=== PATIENT | male | born 1970 | race Caucasian/White ===

== ENCOUNTER → 2016-04-12 | Outpatient (CLI) | payer OTHER ==
--- NOTE | 2016-04-12 08:01 | CT ---
EXAMINATION TYPE: CT abdomen pelvis w con DATE OF EXAM: 04/12/2016 7:39 AM REFERENCE: NONE HISTORY: R10.31 RLQ abdominal pain HISTORY: RLQ pain REFERENCE: NONE CT DLP: 2215.4 mGy Automated exposure control for dose reduction was used. TECHNIQUE: Helical acquisition through the abdomen and pelvis was obtained following the oral ingesti on of with Oral Contrast and following intravenous administration of 100 mL of Omnipaque 300. The marquise a was reformatted in axial, coronal and sagittal projections. FINDINGS: There is minimal dependent atelectasis within the lungs. There is no pleural or pericardia l fluid. The heart is not enlarged. Within the abdomen, the gallbladder has been removed. The liver is unremarkable. There is mild spleno megaly with the spleen measuring 15.6 cm. Both adrenal glands are normal. Both kidneys demonstrate function and appear morphologically normal. The pancreas is unremarkable. There is no significant retroperitoneal, iliac or inguinal adenopathy. The bladder is unremarkable. There is no significant diverticular change and there is no radiographic evidence of diverticulitis. The appendix is not visualized. There is some questionable thickening of the wall of the descending c olon and proximal sigmoid colon. Small bowel loops also show focal areas of wall thickening. There is no free fluid and no free air identified. There is a small umbilical hernia containing fat only with 1.9 cm mouth. There is minimal facet arthropathy in the L3-4 and L4-5 facets as well as some hypertrophic spondylos is in the lower dorsal spine. There is mild wedging of the T7 and T8 vertebral bodies. IMPRESSION: 1. MILD SPLENOMEGALY. 2. MUCOSAL THICKENING INVOLVING THE LEFT SIDE OF THE COLON WELL FOCAL THICKENING INVOLVING THE SMALL BOWEL. PLEASE CORRELATE FOR ENTERITIS OR COLITIS. 3. SMALL UMBILICAL HERNIA CONTAINING FAT ONLY. 4. DEGENERATIVE CHANGE WITHIN THE DORSAL AND LUMBAR SPINES WELL MILD WEDGING OF THE T7 AND T8 V ERTEBRAL BODIES.
== END ==
LOC: RADCTMAIN 06:51
PROVIDERS: ATTEND Family Medicine
DX: R16.1 Splenomegaly, not elsewhere classified (principal); K63.89 Other specified diseases of intestine; K42.9 Umbilical hernia without obstruction or gangrene
CPT/HCPCS: 74177; Q9967

== ENCOUNTER 2018-08-16 07:11 | Emergency (ER) | payer OTHER ==
[2018-08-16 07:23] VITALS: RESP 18
--- NOTE | 2018-08-16 07:44 | ED ---
General Adult HPI - General Chief complaint: ENT Stated complaint: Sore/Swollen Throat Time Seen by Provider: 08/16/18 07:25 Source: patient, RN notes reviewed Mode of arrival: ambulatory Limitations: no limitations - History of Present Illness Initial comments: 47-year-old male without any significant past medical history presents to the emergency department for a chief complaint of sore throat. Patient states he woke up this morning with a sore throat. States it hurts to swallow. Patient is concerned because his throat does feel a little swollen. Patient denies any difficulty swallowing liquids or solids. He denies any fevers. He denies any cough or congestion. Patient has no other complaints at this time including shortness of breath, chest pain, abdominal pain, nausea or vomiting, headache, or visual changes. - Related Data Previous Rx's Medication Instructions Recorded Clindamycin HCl 300 mg PO TID 10 Days cap 08/16/18 Allergies Allergy/AdvReac Type Severity Reaction Status Date / Time Penicillins Allergy pt's Verified 08/16/18 08:32 family is allergic so pt states that he is Review of Systems ROS Statement: Those systems with pertinent positive or pertinent negative responses have been documented in the HPI. ROS Other: All systems not noted in ROS Statement are negative. Past Medical History Past Surgical History: Cholecystectomy Additional Past Surgical History / Comment(s): cyst Past Psychological History: No Psychological Hx Reported Smoking Status: Former smoker Past Alcohol Use History: Occasional Past Drug Use History: None Reported General Exam Limitations: no limitations General appearance: alert, in no apparent distress Head exam: Present: atraumatic, normocephalic, normal inspection Eye exam: Present: normal appearance, PERRL, EOMI. Absent: scleral icterus, conjunctival injection, periorbital swelling ENT exam: Present: normal exam, mucous membranes moist, TM's normal bilaterally, normal external ear exam. Absent: normal oropharynx (Uvula is midline however does appear somewhat edematous, no evidence for peritonsillar abscess, no tonsillar exudates noted) Neck exam: Present: normal inspection, full ROM, lymphadenopathy (bilat palpable and tender submandibular LNs). Absent: tenderness, meningismus Respiratory exam: Present: normal lung sounds bilaterally. Absent: respiratory distress (Patient sitting on edge of bed, no evidence of respiratory distress.), wheezes, rales, rhonchi, stridor Cardiovascular Exam: Present: regular rate, normal rhythm, normal heart sounds. Absent: systolic murmur, diastolic murmur, rubs, gallop, clicks Neurological exam: Present: alert, oriented X3, CN II-XII intact Psychiatric exam: Present: normal affect, normal mood Course Vital Signs 08/16/18 08/16/18 08/16/18 07:21 07:58 08:15 Temperature 98.3 F Pulse Rate 71 74 77 Respiratory 18 18 18 Rate Blood Pressure 154/112 135/102 147/97 O2 Sat by Pulse 97 97 95 Oximetry Medical Decision Making - Medical Decision Making 47-year-old male with a past medical history of cholecystectomy presents for chief complaint of sore throat. Patient states he woke up with a sore throat. He states he feels a little bit swollen as well. States it feels dry and hurts when he swallows. Vitals are stable. Patient is hypertensive, likely related to anxiety. However patient states he is always hypertensive but is not on any blood pressure medication. States his diastolic is always over 95. On exam patient has a patent oropharynx however uvula does appear somewhat swollen with erythema. No edema or signs of angioedema. No allergic reaction. Uvula is midline, there is no evidence of peritonsillar abscess. Patient does have prominent submandibular lymph nodes noted. No exudates. Strep was negative. X-ray of the soft tissue neck also is normal Patient likely has a uvulitis. Patient ALLERGIC to penicillins, will be treated with clindamycin. Patient also be given IM Decadron for sensation of swelling. Recommended follow-up with primary care for this as well as hypertension. Recommended returning if he has any worsening symptoms. - Lab Data Lab Results 08/16/18 Range/Units 07:45 Group A Strep Rapid Negative (Negative) Disposition Clinical Impression: Uvulitis, Pharyngitis Disposition: HOME SELF-CARE Condition: Good Instructions (If sedation given, give patient instructions): Pharyngitis (ED) Additional Instructions: Please follow up with primary care for high blood pressure as well as sore throat. If you have any worsening symptoms such as worsening swelling or are unable to swallow solids or liquids make sure you return to the ED. Prescriptions: Clindamycin HCl 300 mg PO TID 10 Days cap Is patient prescribed a controlled substance at d/c from ED?: No Referrals: Nirmal Rodriguez MD [Primary Care Provider] - 1-2 days Time of Disposition: 09:02
--- NOTE | 2018-08-16 07:57 | XR ---
EXAMINATION TYPE: XR soft tissue neck , 2 VIEWS DATE OF EXAM ORDERED: 08/16/2018 HISTORY: Pain. COMPARISON: None. FINDINGS: Limited soft tissue views of the neck are unremarkable. The epiglottis is normal in size. Prevertebral soft tissues appear normal. IMPRESSION: NORMAL SOFT TISSUE VIEWS OF THE NECK.
[2018-08-16] MEDS ORDERED: DEXAMETHASONE SOD PHOSPHATE 10 MG/ML 1 ML VIAL IM STA (09:01)
[2018-08-16 09:15] VITALS: BP 139/95; PULSE 71; TEMP 97.8
== END 2018-08-16 09:15 | disposition home or self-care (01) ==
LOC: EC 07:11
DX: K12.2 Cellulitis and abscess of mouth (principal); J02.9 Acute pharyngitis, unspecified; I10 Essential (primary) hypertension; Z88.0 Allergy status to penicillin; Z87.891 Personal history of nicotine dependence
CPT/HCPCS: 87081; 87430; 70360; 99283; 96372; J1100

== ENCOUNTER → 2018-10-07 | Outpatient (CLI) | payer BC ==
--- NOTE | 2018-10-07 08:23 | US ---
EXAMINATION TYPE: US venous doppler duplex LE DATE OF EXAM: 10/07/2018 7:43 AM COMPARISON: NONE CLINICAL HISTORY: Swelling of bilateral legs R22.41, R22.42. Edema bilateral legs SIDE PERFORMED: Bilateral TECHNIQUE: The lower extremity deep venous system is examined utilizing real time linear array sonog isac with graded compression, doppler sonography and color-flow sonography. VESSELS IMAGED: External Iliac Vein (EIV) Common Femoral Vein Deep Femoral Vein Greater Saphenous Vein * Femoral Vein Popliteal Vein Small Saphenous Vein * Proximal Calf Veins (* superficial vessels) Right Leg: No evidence of DVT Left Leg: No evidence of DVT Grayscale, color doppler, spectral doppler imaging performed of the deep veins of the bilateral lower extremities. There is normal flow, compressibility, vascular waveforms. IMPRESSION: NO EVIDENCE FOR ACUTE DVT IN EITHER LOWER EXTREMITY.
[2018-10-07 08:39] LABS: Basophils % (A) 1 %; Eosinophils # (A) 0.1 k/uL (0-0.7); Eosinophils % (A) 1 %; HCT 44.9 % (39.0-53.0); HGB 15.4 gm/dL (13.0-17.5); Lymphocytes # (A) 1.8 k/uL (1.0-4.8); Lymphocytes % (A) 33 %; MCH 30.7 pg (25.0-35.0); MCHC 34.4 g/dL (31.0-37.0); MCV 89.2 fL (80.0-100.0); Mean Platelet Volume 7.9; Monocytes # (A) 0.4 k/uL (0-1.0); Monocytes % (A) 8 %; Neutrophils # (A) 2.9 k/uL (1.3-7.7); Neutrophils % (A) 55 %; Platelet Count 172 k/uL (150-450); RBC 5.03 m/uL (4.30-5.90); RDW 13.8 % (11.5-15.5); WBC 5.3 k/uL (3.8-10.6)
[2018-10-07 08:49] LABS: ALT 50 U/L (21-72); AST 31 U/L (17-59); African American GFR (CKD) >90 (>60 ml/min/1.73 sqM); Albumin 4.2 g/dL (3.5-5.0); Alkaline Phosphatase 79 U/L (38-126); Anion Gap 6 mmol/L; Blood Urea Nitrogen 18 mg/dL (9-20); Calcium 9.4 mg/dL (8.4-10.2); Carbon Dioxide 29 mmol/L (22-30); Chloride 105 mmol/L (98-107); Cholesterol 163 mg/dL (<200); Glucose 106 mg/dL (74-99); HDL Cholesterol 43 mg/dL (40-60); LDL Cholesterol,Calculated 84 mg/dL (0-99); Non-African American GFR(CKD) 78 (>60 ml/min/1.73 sqM); Sodium 140 mmol/L (137-145); Total Bilirubin 0.9 mg/dL (0.2-1.3); Total Protein 6.9 g/dL (6.3-8.2); Triglycerides 179 mg/dL (<150)
[2018-10-07 09:05] LABS: T4, Free (Free Thyroxine) 0.99 ng/dL (0.78-2.19)
--- NOTE | 2018-10-08 09:07 | P.ARTDOP ---
Arterial Doppler LOWER EXTREMITY ARTERIAL DOPPLER: DATE OF SERVICE: 10/07/2018 Reason for study: Bilateral leg edema. Doppler waveforms: Multiphasic bilaterally throughout. Pulse volume recording: []. Pressure gradients: None. Ankle-brachial indices: Greater than 1 bilaterally. Toe pressures: [] on the right, [] on the left Impression: Normal study.
== END | disposition home or self-care (01) ==
LOC: RADUSWWP 07:01
PROVIDERS: ATTEND Family Medicine
DX: R22.43 Localized swelling, mass and lump, lower limb, bilateral (principal)
CPT/HCPCS: 36415; 80053; 80061; 84439; 84443; 85025; 93922; 93970

== ENCOUNTER 2022-10-03 15:36 | Inpatient (IN) | payer BC ==
--- NOTE | 2022-10-03 15:59 | ED ---
Syncope HPI - General Chief Complaint: Syncope Stated Complaint: NVD Time Seen by Provider: 10/03/22 15:58 Source: patient, EMS Mode of arrival: EMS Limitations: no limitations - History of Present Illness Initial Comments: This is a 52-year-old male to the emergency department today he presents today evaluation today. This patient presents today for evaluation regards to a syncopal event. Patient has syncopal event a doctor's office he was not feeling well with nausea vomiting diarrhea abdominal pain. He symptoms are ongoing for a few days now with no improvement. No fevers does feel lightheaded and dizzy and that he could pass out with significant activity or motion. No chest pain no headache no current shortness of breath MD Complaint: loss of consciousness, other (Abdominal pain with nausea vomiting and diarrhea for a few days now) -: days(s) Prodromal Symptoms: lightheaded, nausea/vomiting -: second(s) Witnessed: yes - by bystander Current Symptoms: lightheaded History: previous syncopal episode Context: recent illness Treatments Prior to Arrival: IV fluids - Related Data On Hormonal Control: No Home Medications Medication Instructions Recorded Confirmed Loratadine [Claritin] 10 mg PO DAILY 10/03/22 10/03/22 Omeprazole 40 mg PO DAILY 10/03/22 10/03/22 Allergies Allergy/AdvReac Type Severity Reaction Status Date / Time Penicillins Allergy pt's Verified 10/03/22 18:34 family is allergic so pt states that he is Review of Systems ROS Statement: Those systems with pertinent positive or pertinent negative responses have been documented in the HPI. ROS Other: All systems not noted in ROS Statement are negative. Past Medical History Past Medical History: No Reported History History of Any Multi-Drug Resistant Organisms: None Reported Past Surgical History: Cholecystectomy Additional Past Surgical History / Comment(s): cyst Past Psychological History: No Psychological Hx Reported Smoking Status: Former smoker Past Alcohol Use History: Occasional Past Drug Use History: None Reported General Exam Limitations: no limitations General appearance: alert, in no apparent distress, anxious Head exam: Present: atraumatic, normocephalic, normal inspection Eye exam: Present: normal appearance, PERRL, EOMI. Absent: scleral icterus, conjunctival injection, periorbital swelling ENT exam: Present: normal exam, mucous membranes moist Neck exam: Present: normal inspection. Absent: tenderness, meningismus, lymphadenopathy Respiratory exam: Present: normal lung sounds bilaterally. Absent: respiratory distress, wheezes, rales, rhonchi, stridor Cardiovascular Exam: Present: regular rate, normal rhythm, normal heart sounds. Absent: systolic murmur, diastolic murmur, rubs, gallop, clicks GI/Abdominal exam: Present: soft, normal bowel sounds. Absent: distended, tenderness, guarding, rebound, rigid Extremities exam: Present: normal inspection, full ROM, normal capillary refill. Absent: tenderness, pedal edema, joint swelling, calf tenderness Back exam: Present: normal inspection Neurological exam: Present: alert, oriented X3, CN II-XII intact Psychiatric exam: Present: normal affect, normal mood Skin exam: Present: warm, dry, intact, normal color. Absent: rash Course Vital Signs 10/03/22 10/03/22 10/03/22 15:42 19:46 20:00 Temperature 97.5 F L 98.3 F Pulse Rate 88 79 Pulse Rate [ 80 Pulse Oximetery ] Respiratory 18 16 16 Rate Blood Pressure 117/87 144/100 Blood Pressure 142/91 [Left Arm] O2 Sat by Pulse 96 97 98 Oximetry - Reevaluation(s) Reevaluation #1: 10/03/22 19:20 Medical records reviewed Reevaluation #2: 10/03/22 19:20 Patient feels mildly improved with hydration no recurrent syncopal event here in the ER, abdominal pain persists Reevaluation #3: 10/03/22 19:20 Patient informed results questions answered Reevaluation #4: 10/03/22 19:19 Was pt. sent in by a medical professional or institution (AMY Martinez, INDUCTION COORDINATION POWER ENGINEER, urgent care, hospital, or alf...) When possible be specific @ -no Did you speak to anyone other than the patient for history (EMS, parent, family, police, friend...)? What history was obtained from this source @ -no Did you review nursing and triage notes (agree or disagree)? Why? @ -agree Are old charts reviewed (outside hosp., previous admission, EMS record, old EKG, old radiological studies, urgent care reports/EKG's, alf records)? Report findings @ -yes Differential Diagnosis (chest pain, altered mental status, abdominal pain women, abdominal pain men, vaginal bleeding, weakness, fever, dyspnea, syncope, headache, dizziness, GI bleed, back pain, seizure, CVA, palpatations, mental health, musculoskeletal)? @ -prior EKG interpreted by me (3pts min.). @ -yes X-rays interpreted by me (1pt min.). @ -yes CT interpreted by me (1pt min.). @ -yes U/S interpreted by me (1pt. min.). @ -no What testing was considered but not performed or refused? (CT, X-rays, U/S, labs)? Why? @ -none What meds were considered but not given or refused? Why? @ -none Did you discuss the management of the patient with other professionals (professionals i.e. , PA, INDUCTION COORDINATION POWER ENGINEER, lab, RT, psych nurse, social work lecturer, public health technologist, teacher, co founder and chief strategy officer, business case analyst)? Give summary @ -no Was smoking cessation discussed for >3mins.? @ -no Was critical care preformed (if so, how long)? @ -no Were there social determinants of health that impacted care today? How? (Homelessness, low income, unemployed, alcoholism, drug addiction, transportation, low edu. Level, literacy, decrease access to med. care, penitentiary, rehab)? @ -none Was there de-escalation of care discussed even if they declined (Discuss DNR or withdrawal of care, Hospice)? DNR status @ -no What co-morbidities impacted this encounter? (DM, HTN, Smoking, COPD, CAD, Cancer, CVA, ARF, Chemo, Hep., AIDS, mental health diagnosis, sleep apnea, morbid obesity)? @ -none Was patient admitted / discharged? Hospital course, mention meds given and route, prescriptions, significant lab abnormalities, going to OR and other pertinent info. @ - 52 male to the emergency department for evaluation of syncope. Patient has no recurrent syncopal here in the ER. Patient be admitted for similar with hydration but is found of small bowel obstruction. Patient doesn't elevated d- dimer, will pending for VQ scan, CT angios of chest in the morning. Patient be admitted for nothing by mouth status of small bowel obstruction as well as surgical consultation and symptom management Admitted Undiagnosed new problem with uncertain prognosis? @ -no Drug Therapy requiring intensive monitoring for toxicity (Heparin, Nitro, Insulin, Cardizem)? @ -no Were any procedures done? @ -no Diagnosis/symptom? @ -Syncope, small bowel obstruction, nausea vomiting diarrhea Acute, or Chronic, or Acute on Chronic? @ -Acute Uncomplicated (without systemic symptoms) or Complicated (systemic symptoms)? @ -Complicated Side effects of treatment? @ -no Exacerbation, Progression, or Severe Exacerbation? @ -exacerbation Poses a threat to life or bodily function? How? (Chest pain, [place], [place], pneumonia, PE, COPD, DKA, ARF, appy, cholecystitis, CVA, Diverticulitis, Homicidal, Suicidal, threat to staff... and all critical care pts) @ -yes multiple, salt and mortality Reevaluation #5: 10/03/22 19:19 Differential Abdominal Pain Women: Appendicitis, Cholecystitis, diverticulosis, ischemic bowel, pancreatitis, hepatitis, UTI, gastroenteritis, AAA, incarcerated hernia, bowel obstruction, constipation, inflammatory bowel, hepatitis, peptic ulcer disease, splenic infarction, perforated viscus, vulvitis, ovarian torsion, PID, kidney stone, placenta abruption, this is not meant to be an all-inclusive list WomenDifferential Syncope: Valvular disease, hypertrophic cardiomyopathy, pulmonary embolism, tamponade, tachycardia, bradycardia, OH, hypovolemia, hemorrhage, dissection, anemia, intracranial hemorrhage, seizure, hypoglycemia, carbon monoxide poisoning, this is not meant to be an all-inclusive list. - Consultations Consultation #1: Spoke with Dr. Rodriguez agrees to admit this patient EKG Findings - EKG Comments: EKG Findings:: EKG is sinus a 2 NC 166 QRS 126 QTc 4:15 - EKG Results: EKG: interpreted by ERMD Medical Decision Making - Medical Decision Making 52 male to the emergency department for evaluation of syncope. Patient has no recurrent syncopal here in the ER. Patient be admitted for similar with hydration but is found of small bowel obstruction. Patient doesn't elevated d- dimer, will pending for VQ scan, CT angios of chest in the morning. Patient be admitted for nothing by mouth status of small bowel obstruction as well as surgical consultation and symptom management - Lab Data Result diagrams: 10/04/22 07:15 10/04/22 07:15 Lab Results 10/03/22 10/03/22 10/03/22 Range/Units 16:29 16:29 16:29 WBC 9.2 (3.8-10.6) k/uL RBC 5.29 (4.30-5.90) m/uL Hgb 16.8 (13.0-17.5) gm/dL Hct 45.8 (39.0-53.0) % MCV 86.6 (80.0-100.0) fL MCH 31.7 (25.0-35.0) pg MCHC 36.6 (31.0-37.0) g/dL RDW 13.4 (11.5-15.5) % Plt Count 179 (150-450) k/uL MPV 7.9 Neutrophils % 77 % Lymphocytes % 13 % Monocytes % 7 % Eosinophils % 2 % Basophils % 0 % Neutrophils # 7.0 (1.3-7.7) k/uL Lymphocytes # 1.2 (1.0-4.8) k/uL Monocytes # 0.7 (0-1.0) k/uL Eosinophils # 0.1 (0-0.7) k/uL Basophils # 0.0 (0-0.2) k/uL PT 10.5 (9.0-12.0) sec INR 1.0 (<1.2) APTT 24.8 (22.0-30.0) sec D-Dimer 2.44 H (<0.60) mg/L FEU Sodium 136 L (137-145) mmol/L Potassium 4.0 (3.5-5.1) mmol/L Chloride 103 (98-107) mmol/L Carbon Dioxide 21 L (22-30) mmol/L Anion Gap 12 mmol/L BUN 14 (9-20) mg/dL Creatinine 1.08 (0.66-1.25) mg/dL Est GFR (CKD-EPI)AfAm 89 (>60 ml/min/1.73 sqM) Est GFR (CKD-EPI)NonAf 77 (>60 ml/min/1.73 sqM) Glucose 141 H (74-99) mg/dL Calcium 9.0 (8.4-10.2) mg/dL Phosphorus 4.0 (2.5-4.5) mg/dL Magnesium 1.8 (1.6-2.3) mg/dL Total Bilirubin 1.6 H (0.2-1.3) mg/dL AST 26 (17-59) U/L ALT 31 (4-49) U/L Alkaline Phosphatase 92 (38-126) U/L Troponin I (0.000-0.034) ng/mL NT-Pro-B Natriuret Pep <20 pg/mL Total Protein 7.0 (6.3-8.2) g/dL Albumin 4.1 (3.5-5.0) g/dL TSH 1.850 (0.465-4.680) mIU/L 10/03/22 Range/Units 16:29 WBC (3.8-10.6) k/uL RBC (4.30-5.90) m/uL Hgb (13.0-17.5) gm/dL Hct (39.0-53.0) % MCV (80.0-100.0) fL MCH (25.0-35.0) pg MCHC (31.0-37.0) g/dL RDW (11.5-15.5) % Plt Count (150-450) k/uL MPV Neutrophils % % Lymphocytes % % Monocytes % % Eosinophils % % Basophils % % Neutrophils # (1.3-7.7) k/uL Lymphocytes # (1.0-4.8) k/uL Monocytes # (0-1.0) k/uL Eosinophils # (0-0.7) k/uL Basophils # (0-0.2) k/uL PT (9.0-12.0) sec INR (<1.2) APTT (22.0-30.0) sec D-Dimer (<0.60) mg/L FEU Sodium (137-145) mmol/L Potassium (3.5-5.1) mmol/L Chloride (98-107) mmol/L Carbon Dioxide (22-30) mmol/L Anion Gap mmol/L BUN (9-20) mg/dL Creatinine (0.66-1.25) mg/dL Est GFR (CKD-EPI)AfAm (>60 ml/min/1.73 sqM) Est GFR (CKD-EPI)NonAf (>60 ml/min/1.73 sqM) Glucose (74-99) mg/dL Calcium (8.4-10.2) mg/dL Phosphorus (2.5-4.5) mg/dL Magnesium (1.6-2.3) mg/dL Total Bilirubin (0.2-1.3) mg/dL AST (17-59) U/L ALT (4-49) U/L Alkaline Phosphatase (38-126) U/L Troponin I <0.012 (0.000-0.034) ng/mL NT-Pro-B Natriuret Pep pg/mL Total Protein (6.3-8.2) g/dL Albumin (3.5-5.0) g/dL TSH (0.465-4.680) mIU/L - EKG Data -: EKG Interpreted by Me - Radiology Data Radiology results: pending (CT angiogram chest in the a.m.), report reviewed (CT head and pelvis positive for small bowel obstruction, enteritis), image reviewed Critical Care Time Critical Care Time: Yes Total Critical Care Time: 31 Disposition Clinical Impression: Dehydration, Syncope, Abdominal pain, SBO (small bowel obstruction), Nausea and vomiting Disposition: ADMITTED IP TO THIS [facility] Condition: Serious Is patient prescribed a controlled substance at d/c from ED?: No Time of Disposition: 19:00
[2022-10-03] MEDS ORDERED: SODIUM CHLORIDE 0.9% 500 ML 500 ML IV STA (16:13)
[2022-10-03] MEDS ORDERED: SODIUM CHLORIDE 0.9% 1,000 ML IV STA ×2 (16:13)
[2022-10-03] MEDS ORDERED: ONDANSETRON 4 MG/2 ML VIAL IVP STA (16:13)
[2022-10-03 16:40] LABS: Basophils % (A) 0 %; Eosinophils # (A) 0.1 k/uL (0-0.7); Eosinophils % (A) 2 %; HCT 45.8 % (39.0-53.0); HGB 16.8 gm/dL (13.0-17.5); Lymphocytes # (A) 1.2 k/uL (1.0-4.8); Lymphocytes % (A) 13 %; MCH 31.7 pg (25.0-35.0); MCHC 36.6 g/dL (31.0-37.0); MCV 86.6 fL (80.0-100.0); Mean Platelet Volume 7.9; Monocytes # (A) 0.7 k/uL (0-1.0); Monocytes % (A) 7 %; Neutrophils % (A) 77 %; Platelet Count 179 k/uL (150-450); RBC 5.29 m/uL (4.30-5.90); RDW 13.4 % (11.5-15.5); WBC 9.2 k/uL (3.8-10.6)
[2022-10-03 16:52] LABS: ALT 31 U/L (4-49); AST 26 U/L (17-59); African American GFR (CKD) 89 (>60 ml/min/1.73 sqM); Albumin 4.1 g/dL (3.5-5.0); Alkaline Phosphatase 92 U/L (38-126); Anion Gap 12 mmol/L; Blood Urea Nitrogen 14 mg/dL (9-20); Carbon Dioxide 21 mmol/L (22-30); Chloride 103 mmol/L (98-107); Glucose 141 mg/dL (74-99); Magnesium 1.8 mg/dL (1.6-2.3); Non-African American GFR(CKD) 77 (>60 ml/min/1.73 sqM); Sodium 136 mmol/L (137-145); Total Bilirubin 1.6 mg/dL (0.2-1.3)
[2022-10-03 17:00] LABS: NT-Pro-B-Type Natriuretic Pept <20 pg/mL
[2022-10-03 17:11] LABS: Partial Thromboplastin Time 24.8 sec (22.0-30.0); Prothrombin Time 10.5 sec (9.0-12.0)
--- NOTE | 2022-10-03 18:10 | CT ---
EXAMINATION TYPE: CT abdomen pelvis w con DATE OF EXAM: 10/03/2022 COMPARISON: 04/12/2016 INDICATION: Abdominal pain, N/V DLP: 2215.3 mGycm, Automated exposure control for dose reduction was used. CONTRAST: 100 mL of Isovue 300. Study performed without Oral Contrast TECHNIQUE: Axial images were obtained from above the diaphragm to the pubic rami in the axial plane a t 5 mm thick sections. Reconstructed images are reviewed on the computer in the coronal plane. FINDINGS: Limited CT sections are obtained the lung bases. The lung bases are clear. CT ABDOMEN: Liver: Normal Spleen: Normal Pancreas: Normal Adrenal glands: The adrenal glands are normal. Gallbladder: Surgically absent Kidneys: No masses are evident. No hydronephrosis is present. No cysts are present. No renal stone s are evident. Aorta: Normal Inferior vena cava: Normal. CT PELVIS: There are multiple dilated fluid-filled small bowel loops. Some small bowel loops have somewhat promi nent wall within the mid abdomen. Distal ileum appears decompressed. There is fluid within an otherwi se normal-appearing colon. Zone transition may be within the mid pelvis there are some loops of ileum with fluid of a more normal caliber. Decompressed ileum is present within the right lower quadrant. Example image series 202 image 51. Appendix: Not identified. No dilated tubular structure or inflammatory changes evident. Urinary bladder: Normal. Genitourinary structures: Prostate is prominent Osseous structures: No suspicious lytic or sclerotic lesions. IMPRESSIONS: 1. Dilated fluid-filled small bowel loops with somewhat prominent wall. Correlate for partial small bowel obstruction. Gastroenteritis could be considered. Report was called and case discussed with the emergency room physician by Dr. Abernathy by telephone at the time of interpretation.
[2022-10-03] MEDS ORDERED: ACETAMINOPHEN TAB 325 MG TAB PO PRN (19:17)
[2022-10-03] MEDS ORDERED: MORPHINE SULFATE 4 MG/ML SYRINGE IV PRN (19:17)
[2022-10-03] MEDS ORDERED: NALOXONE 0.4 MG/ML 1 ML VIAL IV PRN (19:17)
[2022-10-03] MEDS ORDERED: ONDANSETRON 4 MG/2 ML VIAL IVP PRN (19:17)
[2022-10-03] MEDS: SODIUM CHLORIDE 0.9% 1,000 ML IV SCH ×2 (19:44→21:50)
--- NOTE | 2022-10-03 22:29 | CT ---
CT CHEST FOR PULMONARY EMBOLISM. EXAMINATION TYPE: CT angio chest DATE OF EXAM: 10/03/2022 INDICATION: Elevated D-dimer CT DLP: 662.4 mGycm, Automated exposure control for dose reduction was used. CONTRAST: Patient injected with 80 ml mL of Isovue 370. COMPARISON: None TECHNIQUE: CT of the chest is performed on a spiral scan at 2 mm thick sections. Study is performed with intravenous contrast timed for evaluation for pulmonary embolism. This will limit additional po rtions of the evaluation. FINDINGS: No persistent filling defects are evident to suggest an acute pulmonary embolism. No mediastinal or hilar adenopathy enlarged by CT criteria is evident. The ascending aorta diameter at the level of the main pulmonary artery is 3.9 cm. The main pulmonary artery diameter at the bifur cation is 3.0 cm. Lung windows are clear. Limited CT section through the upper abdomen are unremarkable. IMPRESSIONS: 1. No acute pulmonary embolism. 2. No acute pulmonary process.
--- NOTE | 2022-10-04 09:30 | XR ---
EXAMINATION TYPE: XR abdomen 2V DATE OF EXAM: 10/04/2022 9:01 AM INDICATION: Patient age:Male; 52 years old; Reason for study: Ileus; [facility]. COMPARISON: 10/04/2022 TECHNIQUE: Two views of the abdomen were obtained. FINDINGS: The bowel gas pattern is nonspecific without dilated loops of small or large bowel. There i s no evidence for organomegaly or pneumoperitoneum. The osseous structures are intact. No abnormal calcifications are present. Fecal material and gas are demonstrated throughout the colon and rectum. IMPRESSION: Nonspecific bowel gas pattern without radiographic evidence for acute process.
--- NOTE | 2022-10-04 10:11 | P.CRDCN ---
History of Present Illness History of present illness: HISTORY OF PRESENT ILLNESS: This is a 52-year-old male with a past medical history significant for former nicotine dependence. Patient does not follow with a ophthalmic aide. We have been asked to see the patient in consultation for syncope. Patient examined at the bedside. patient states that he began to feel unwell on Saturday. He reports on Saturday he began having nausea and vomiting and diarrhea which persisted through the week. He went to his PCP yesterday to be evaluated. He states he was sitting on the exam table when he began to feel lightheaded and was extremely diaphoretic. A few seconds later, he passed out and landed on his left side on the floor. Patient denies any chest pain or pressure. Denies SOB. Denies any dizziness or lightheadedness. * EKG reveals sinus mechanism with no signs of acute ischemia * Chest CTA: negative for PE * Laboratory data: WBC 9.2. Hemoglobin 16.8. Platelet count 179. Sodium 136. Potassium 4.0. B UN 14. Creatinine 1.08. Troponin negative 3. TSH 1.8 x 0. * Current home cardiac medications include none REVIEW OF SYSTEMS: At the time of my exam: CONSTITUTIONAL: Denies fever or chills. HEENT: Denies blurred vision, vision changes, or eye pain. Denies hemoptysis CARDIOVASCULAR: Denies chest pain. Denies orthopnea. Denies PND. Denies palpitations RESPIRATORY: Denies shortness of breath. GASTROINTESTINAL: Denies abdominal pain. Denies nausea or vomiting. HEMATOLOGIC: Denies bleeding disorders. GENITOURINARY: Denies any blood in urine. SKIN: Denies pruitis. Denies rash. PHYSICAL EXAM: VITAL SIGNS: Reviewed. GENERAL: Well-developed in no acute distress. HEENT: Head is normocephalic. Pupils are equal, round. Sclerae anicteric. Mucous membranes of the mouth are moist. Neck supple. No JVD or thyromegaly LUNGS: Respirations even and unlabored. Lungs essentially clear to auscultation bilaterally. HEART: Regular rate and rhythm. S1 and S2 heard. ABDOMEN: Soft. Nondistended. Nontender. EXTREMITIES: Normal range of motion. No clubbing or cyanosis. Peripheral pulses intact. No lower extremity edema NEUROLOGIC: Awake and alert. Oriented x 3. ASSESSMENT: Nausea, vomiting, and diarrhea x 5 days Decreased oral intake x 5 days Syncope, likely secondary to above Abdominal pain, possible partial SBO PLAN: Obtain 2D echo to assess cardiac structure and function Continue telemetry monitoring to assess for arrhythmias Await evaluation by general surgery Continue IVF hydration Further recommendations pending patient course Nurse practitioner note has been reviewed by physician. Signing provider agrees with the documented findings, assessment, and plan of care. Past Medical History Past Medical History: No Reported History History of Any Multi-Drug Resistant Organisms: None Reported Past Surgical History: Cholecystectomy Additional Past Surgical History / Comment(s): cyst, ankle and knee sx, Past Anesthesia/Blood Transfusion Reactions: No Reported Reaction Past Psychological History: No Psychological Hx Reported Smoking Status: Former smoker Past Alcohol Use History: Occasional Past Drug Use History: None Reported Medications and Allergies Home Medications Medication Instructions Recorded Confirmed Type Loratadine [Claritin] 10 mg PO DAILY 10/03/22 10/03/22 History Omeprazole 40 mg PO DAILY 10/03/22 10/03/22 History Allergies Allergy/AdvReac Type Severity Reaction Status Date / Time Penicillins Allergy pt's Verified 10/03/22 18:34 family is allergic so pt states that he is Physical Exam Vitals: Vital Signs Temp Pulse Pulse Resp BP BP Pulse Ox 10/04/22 09:16 95 10/04/22 06:59 98.2 F 82 18 103/69 95 10/04/22 02:00 98.0 F 77 15 116/78 98 10/03/22 20:00 98.3 F 80 16 142/91 98 10/03/22 19:46 79 16 144/100 97 10/03/22 15:42 97.5 F L 88 18 117/87 96 Intake and Output 10/03/22 10/04/22 10/04/22 22:59 06:59 14:59 Other: Voiding Method Toilet # Voids 2 Weight 114.305 kg Results 10/03/22 16:29 10/03/22 16:29 Cardiac Enzymes 10/03/22 10/03/22 10/03/22 Range/Units 16:29 16:29 21:52 AST 26 (17-59) U/L Troponin I <0.012 <0.012 (0.000-0.034) ng/mL 10/04/22 Range/Units 01:26 AST (17-59) U/L Troponin I <0.012 (0.000-0.034) ng/mL Coagulation 10/03/22 Range/Units 16:29 PT 10.5 (9.0-12.0) sec APTT 24.8 (22.0-30.0) sec CBC 10/03/22 Range/Units 16:29 WBC 9.2 (3.8-10.6) k/uL RBC 5.29 (4.30-5.90) m/uL Hgb 16.8 (13.0-17.5) gm/dL Hct 45.8 (39.0-53.0) % Plt Count 179 (150-450) k/uL Comprehensive Metabolic Panel 10/03/22 Range/Units 16:29 Sodium 136 L (137-145) mmol/L Potassium 4.0 (3.5-5.1) mmol/L Chloride 103 (98-107) mmol/L Carbon Dioxide 21 L (22-30) mmol/L BUN 14 (9-20) mg/dL Creatinine 1.08 (0.66-1.25) mg/dL Glucose 141 H (74-99) mg/dL Calcium 9.0 (8.4-10.2) mg/dL AST 26 (17-59) U/L ALT 31 (4-49) U/L Alkaline Phosphatase 92 (38-126) U/L Total Protein 7.0 (6.3-8.2) g/dL Albumin 4.1 (3.5-5.0) g/dL Current Medications Generic Name Dose Route Start Last Admin Trade Name Freq PRN Reason Stop Dose Admin Acetaminophen 650 mg 10/03/22 19:17 Acetaminophen Tab 325 Mg Tab PO Q6HR PRN Mild Pain or Fever > 100.5 Sodium Chloride 1,000 mls @ 130 mls/hr 10/03/22 19:30 10/03/22 21:50 Saline 0.9% IV 130 mls/hr .[id number] ALBERT Administration Morphine Sulfate 4 mg 10/03/22 19:17 Morphine Sulfate 4 Mg/Ml Syringe IV Q4HR PRN Severe Pain (Scale 7 to 10) Naloxone HCl 0.2 mg 10/03/22 19:17 Naloxone 0.4 Mg/Ml 1 Ml Vial IV Q2M PRN Opioid Reversal Ondansetron HCl 4 mg 08/16/23 19:17 Ondansetron 4 Mg/2 Ml Vial IVP Q8HR PRN Nausea And Vomiting Intake and Output 10/03/22 10/04/22 10/04/22 22:59 06:59 14:59 Other: Voiding Method Toilet # Voids 2 Weight 114.305 kg 10/03/22 16:29 10/03/22 16:29
[2022-10-04 11:13] LABS: Basophils # (A) 0.03 X 10*3/uL (0.00-0.10); Basophils % (A) 0.4 %; Eosinophils # (A) 0.15 X 10*3/uL (0.04-0.35); HCT 42.3 % (39.6-50.0); HGB 14.9 d/dL (13.0-17.0); Lymphocytes # (A) 1.32 X 10*3/uL (0.90-5.00); Lymphocytes % (A) 17.2 %; MCH 30.8 pg (27.0-32.0); MCHC 35.2 d/dL (32.0-37.0); MCV 87.6 FL (80.0-97.0); Mean Platelet Volume 10.4 FL (9.5-12.2); Monocytes # (A) 0.83 X 10*3/uL (0.20-1.00); Monocytes % (A) 10.8 %; NRBC Per 100 WBC 0 X 10*3/uL (0.00-0.01); Neutrophils # (A) 5.33 X 10*3/uL (1.80-7.70); Neutrophils % (A) 69.3 %; Platelet Count 172 X 10*3/uL (140-440); RBC 4.83 X 10*6/uL (4.40-5.60); RDW 13.7 % (11.5-14.5); WBC 7.68 X 10*3/uL (4.50-10.00)
[2022-10-04 11:14] LABS: ALT 26 U/L (10-49); AST 20 U/L (14-35); Albumin 3.8 d/dL (3.8-4.9); Alkaline Phosphatase 83 U/L (41-126); Blood Urea Nitrogen 11.3 mg/dL (9.0-27.0); Calcium 8.6 mg/dL (8.7-10.3); Chloride 108 mmol/L (96-109); Glucose 99 mg/dL (70-110); Magnesium 1.9 mg/dL (1.5-2.4); Phosphorus 2.7 mg/dL (2.4-5.1); Sodium 139 mmol/L (135-145); Total Bilirubin 1.2 mg/dL (0.3-1.2); Total Protein 5.8 d/dL (6.2-8.2)
--- NOTE | 2022-10-04 12:10 | CA ---
Transthoracic Echo Report Name: Ti Hylton Age: 52 Gender: M : 1970 Exam Date: 10/04/2022 07:46 Exam Location: [facility] Ht (in): 68 Wt (lb): 252 Ordering Physician: Page Winchester Attending/Referring Phys: [id number], Annabella [employer]rifugal Station Operator Tasneem Arce [facility] Procedure CPT: Indications: LV function, syncope Cardiac Hx: Technical Quality: Fair Contrast 1: Total Dose (mL): Contrast 2: Total Dose (mL): MEASUREMENTS (Male / Female) Normal Values 2D ECHO LV Diastolic Diameter PLAX 5.1 cm 4.2 - 5.9 / 3.9 - 5.3 cm LV Systolic Diameter PLAX 3.3 cm IVS Diastolic Thickness 1.1 cm 0.6 - 1.0 / 0.6 - 0.9 cm LVPW Diastolic Thickness 1.2 cm 0.6 - 1.0 / 0.6 - 0.9 cm LV Relative Wall Thickness 0.5 Ascending Aorta Diameter 3.6 cm M-MODE Aortic Root Diameter MM 3.1 cm LA Systolic Diameter MM 4.1 cm LA Ao Ratio MM 1.3 DOPPLER AV Peak Velocity 94.7 cm/s AV Peak Gradient 3.6 mmHg AV Mean Velocity 74.6 cm/s AV Mean Gradient 2.4 mmHg AV Velocity Time Integral 17.8 cm LVOT Peak Velocity 90.0 cm/s LVOT Peak Gradient 3.2 mmHg LVOT Velocity Time Integral 16.7 cm Mitral E Point Velocity 49.7 cm/s Mitral A Point Velocity 60.5 cm/s Mitral E to A Ratio 0.8 MV Deceleration Time 180.2 ms LV E' Lateral Velocity 9.5 cm/s Mitral E to LV E' Lateral Ratio 5.2 LV E' Septal Velocity 7.9 cm/s Mitral E to LV E' Septal Ratio 6.3 Right Atrial Pressure 8.0 mmHg FINDINGS Left Ventricle Mildly increased left ventricular wall thickness. Left ventricular cavity size normal. Low normal left ventricular systolic function with no obvious regional wall motion abnormalities. Left ventricular ejection fraction is estimated at 50-55%. Prominent left ventricular trabeculations. Right Ventricle Moderate right ventricular dilatation. Unable to estimate the right ventricular systolic pressure. Right Atrium Normal right atrial size. Left Atrium Normal left atrial size. Mitral Valve Structurally normal mitral valve. Trace mitral regurgitation. Aortic Valve Trileaflet aortic valve. No aortic valve stenosis or regurgitation. Tricuspid Valve Structurally normal tricuspid valve. Trace tricuspid regurgitation. Pulmonic Valve Structurally normal pulmonic valve. Mild pulmonic regurgitation. Pericardium No pericardial effusion. Aorta Normal size aortic root and and upper normal proximal ascending aorta. CONCLUSIONS Normal LV systolic function Previewed by: Dr. Lalo Lubin MD (Electronically Signed) Final Date: 04 October 2022 12:10
--- NOTE | 2022-10-04 16:12 | P.GSCN ---
History of Present Illness Consult date: 10/04/22 Reason for Consult: Abdominal pain History of present illness: 52-year-old male came to the hospital yesterday by EMS after a syncopal episode at his doctor's office. On Saturday began experiencing symptoms of diarrhea. On Saturday had diarrhea all day and vomiting at night. On Saturday the patient had persistent nausea vomiting anorexia and diarrhea. He felt weak. He had an syncopal episode while at his physician's office. He did have some mild abdominal discomfort yesterday. He thought it was related to vomiting. No pain today. No vomiting since yesterday morning. No diarrhea since yesterday afternoon. No fevers. He does have one niece Saran was in contact with on the weekend who had flulike symptoms. CAT scan performed and reviewed. Mild small bowel wall thickening and mild proximal small bowel dilation present. No di screte transition point. Patient with history of previous laparoscopic cholecystectomy. No history of similar events in the past. Feels well currently. White blood cell count normal. Review of Systems The patient denies any acute changes in vision or hearing, no dysphagia or odynophagia, no chest pain or shortness of breath, no dysuria or hematuria, no headache, no runny nose, no rectal bleeding or melena, no unexplained weight loss Past Medical History Past Medical History: No Reported History History of Any Multi-Drug Resistant Organisms: None Reported Past Surgical History: Cholecystectomy Additional Past Surgical History / Comment(s): cyst, ankle and knee sx, Past Anesthesia/Blood Transfusion Reactions: No Reported Reaction Past Psychological History: No Psychological Hx Reported Smoking Status: Former smoker Past Alcohol Use History: Occasional Past Drug Use History: None Reported Medications and Allergies Home Medications Medication Instructions Recorded Confirmed Type Loratadine [Claritin] 10 mg PO DAILY 10/03/22 10/03/22 History Omeprazole 40 mg PO DAILY 10/03/22 10/03/22 History Allergies Allergy/AdvReac Type Severity Reaction Status Date / Time Penicillins Allergy pt's Verified 10/03/22 18:34 family is allergic so pt states that he is Surgical - Exam Vital Signs Temp Pulse Resp BP Pulse Ox 97.5 F L 88 18 117/87 96 10/03/22 15:42 10/03/22 15:42 10/03/22 15:42 10/03/22 15:42 10/03/22 15:42 Physical exam: General: Well-developed, well-nourished HEENT: Normocephalic, sclerae nonicteric Abdomen: Nontender, nondistended Extremities: No edema Neuro: Alert and oriented Results - Labs 10/04/22 07:15 10/04/22 07:15 Abnormal Lab Results - Last 24 Hours (Table) 10/03/22 10/03/22 10/04/22 Range/Units 16:29 16:29 07:15 D-Dimer 2.44 H (<0.60) mg/L FEU Sodium 136 L (137-145) mmol/L Carbon Dioxide 21 L (22-30) mmol/L BUN/Creatinine Ratio 11.30 L (12.00-20.00) Ratio Glucose 141 H (74-99) mg/dL Calcium 8.6 L (8.7-10.3) mg/dL Total Bilirubin 1.6 H (0.2-1.3) mg/dL Total Protein 5.8 L (6.2-8.2) d/dL Diabetes panel 10/03/22 10/04/22 Range/Units 16:29 07:15 Sodium 136 L 139 (137-145) mmol/L Potassium 4.0 4.0 (3.5-5.1) mmol/L Chloride 103 108 (98-107) mmol/L Carbon Dioxide 21 L 22.0 (22-30) mmol/L BUN 14 11.3 (9-20) mg/dL Creatinine 1.08 1.0 (0.66-1.25) mg/dL Glucose 141 H 99 (74-99) mg/dL Calcium 9.0 8.6 L (8.4-10.2) mg/dL AST 26 20 (17-59) U/L ALT 31 26 (4-49) U/L Alkaline Phosphatase 92 83 (38-126) U/L Total Protein 7.0 5.8 L (6.3-8.2) g/dL Albumin 4.1 3.8 (3.5-5.0) g/dL Thyroid panel 10/03/22 Range/Units 16:29 TSH 1.850 (0.465-4.680) mIU/L Calcium panel 10/03/22 10/04/22 Range/Units 16:29 07:15 Calcium 9.0 8.6 L (8.4-10.2) mg/dL Phosphorus 4.0 2.7 (2.5-4.5) mg/dL Albumin 4.1 3.8 (3.5-5.0) g/dL Pituitary panel 10/03/22 10/04/22 Range/Units 16:29 07:15 Sodium 136 L 139 (137-145) mmol/L Potassium 4.0 4.0 (3.5-5.1) mmol/L Chloride 103 108 (98-107) mmol/L Carbon Dioxide 21 L 22.0 (22-30) mmol/L BUN 14 11.3 (9-20) mg/dL Creatinine 1.08 1.0 (0.66-1.25) mg/dL Glucose 141 H 99 (74-99) mg/dL Calcium 9.0 8.6 L (8.4-10.2) mg/dL TSH 1.850 (0.465-4.680) mIU/L Adrenal panel 10/03/22 10/04/22 Range/Units 16:29 07:15 Sodium 136 L 139 (137-145) mmol/L Potassium 4.0 4.0 (3.5-5.1) mmol/L Chloride 103 108 (98-107) mmol/L Carbon Dioxide 21 L 22.0 (22-30) mmol/L BUN 14 11.3 (9-20) mg/dL Creatinine 1.08 1.0 (0.66-1.25) mg/dL Glucose 141 H 99 (74-99) mg/dL Calcium 9.0 8.6 L (8.4-10.2) mg/dL Total Bilirubin 1.6 H 1.2 (0.2-1.3) mg/dL AST 26 20 (17-59) U/L ALT 31 26 (4-49) U/L Alkaline Phosphatase 92 83 (38-126) U/L Total Protein 7.0 5.8 L (6.3-8.2) g/dL Albumin 4.1 3.8 (3.5-5.0) g/dL Assessment and Plan (1) Abdominal pain Narrative/Plan: 52-year-old male with abdominal pain and symptoms consistent with ga stroenteritis. Begin clear liquids. May advance if tolerates. Anticipate discharge tomorrow. Monitor for recurrent symptoms. Current Visit: Yes Status: Acute Code(s): R10.9 - UNSPECIFIED ABDOMINAL PAIN SNOMED Code(s): 71485738
--- NOTE | 2022-10-04 17:55 | P.HPIM ---
History of Present Illness H&P Date: 10/04/22 Chief Complaint: Syncopal episode at office yesterday This is a 51 [id number] male well-known to the practice who presented to the office was seen by the nurse practitioner. Who on entry to the exam room underwent a syncopal episode and fell and struck himself on the exam table ambulance was called and patient was transferred to the emergency room via ambulance. Patient's been experiencing multiple episodes of diarrhea and vomiting all day Saturday and Saturday was seen in the office and which he felt weak and experienced full blown syncopal episode. Patient has no pain today no vomiting since yesterday morning no loose stools just today no fevers it appears that he may have had a SBO, CAT scan performed had mild small bowel wall thickening proximal sole ball done granulation dilatation feeling much better white blood count is normal Review of Systems Constitutional: Reports as per HPI Ears, nose, mouth and throat: Reports as per HPI Cardiovascular: Reports as per HPI Respiratory: Reports as per HPI Gastrointestinal: Reports abdominal pain, Reports constipation, Reports diarrhea, Reports nausea, Reports vomiting Genitourinary: Reports as per HPI Musculoskeletal: Reports as per HPI Integumentary: Reports as per HPI Neurological: Reports as per HPI Psychiatric: Reports as per HPI Endocrine: Reports as per HPI Past Medical History Past Medical History: No Reported History, Syncope History of Any Multi-Drug Resistant Organisms: None Reported Past Surgical History: Cholecystectomy Additional Past Surgical History / Comment(s): cyst, ankle and knee sx, Past Anesthesia/Blood Transfusion Reactions: No Reported Reaction Past Psychological History: No Psychological Hx Reported Smoking Status: Former smoker Past Alcohol Use History: Occasional Past Drug Use History: None Reported Medications and Allergies Home Medications Medication Instructions Recorded Confirmed Type Loratadine [Claritin] 10 mg PO DAILY 10/03/22 10/03/22 History Omeprazole 40 mg PO DAILY 10/03/22 10/03/22 History Allergies Allergy/AdvReac Type Severity Reaction Status Date / Time Penicillins Allergy pt's Verified 10/03/22 18:34 family is allergic so pt states that he is Physical Exam Osteopathic Statement: *. No significant issues noted on an osteopathic structural exam other than those noted in the History and Physical/Consult. Vitals: Vital Signs Temp Pulse Pulse Resp BP BP Pulse Ox 10/04/22 13:36 98.1 F 73 18 127/86 97 10/04/22 09:16 95 10/04/22 06:59 98.2 F 82 18 103/69 95 10/04/22 02:00 98.0 F 77 15 116/78 98 10/03/22 20:00 98.3 F 80 16 142/91 98 10/03/22 19:46 79 16 144/100 97 Intake and Output 10/04/22 10/04/22 10/04/22 06:59 14:59 22:59 Other: # Voids 2 General: [Patient awake, alert and oriented times 3. Patient in no acute distress.] HEENT: [PERRL. EOMI. No pharyngeal erythema or exudate.] Neck: [No adenopathy.] Cardiac: [Heart regular in rate and rhythm. No S3. No S4. No clicks, rubs. No murmur.] Lungs: [Clear to auscultation bilaterally.] Abdomen: [No mass. No organomegaly. Bowel sounds presnt and normoactive in all 4 quadrants.] Extremes: [No edema no cyanosis no claudication normal pulses] : Normal male genitalia Musculoskeletal: [No joint erythema, edema or tenderness.] Skin: [No rash.] Neurologic: [No lateralizing deficits. CN II - XII grossly intact.] Lymphatic: [No adenopathy.] Results CBC & Chem 7: 10/04/22 07:15 10/04/22 07:15 Labs: Abnormal Lab Results - Last 24 Hours (Table) 10/04/22 Range/Units 07:15 BUN/Creatinine Ratio 11.30 L (12.00-20.00) Ratio Calcium 8.6 L (8.7-10.3) mg/dL Total Protein 5.8 L (6.2-8.2) d/dL Thrombosis Risk Factor Assmnt - Choose All That Apply Each Factor Represents 1 point: Age 41-60 years Other Risk Factors: No Other congenital or acquired thrombophilia - If yes, enter type in comment: No Thrombosis Risk Factor Assessment Total Risk Factor Score: 1 Thrombosis Risk Factor Assessment Level: Low Risk Assessment and Plan (1) Abdominal pain Current Visit: Yes Status: Acute Code(s): R10.9 - UNSPECIFIED ABDOMINAL PAIN SNOMED Code(s): 30232576 (2) Dehydration Current Visit: Yes Status: Acute Code(s): E86.0 - DEHYDRATION SNOMED Code(s): 46418570 (3) SBO (small bowel obstruction) Current Visit: Yes Status: Acute Code(s): K56.609 - UNSP INTESTNL OBST, UNSP TO PARTIAL VERSUS COMPLETE OBST SNOMED Code(s): 505230096 (4) Syncope Current Visit: Yes Status: Acute Code(s): R55 - SYNCOPE AND COLLAPSE S NOMED Code(s): 164696805 Plan: Probable vasovagal syncope secondary to temporary SBO Symptoms. Be resolving If patient tolerates diet tonight anticipate discharge home tomorrow Time with Patient: Greater than 30
[2022-10-04 21:16] VITALS: RESP 16
[2022-10-04] MEDS: SODIUM CHLORIDE 0.9% 1,000 ML IV SCH (21:29)
[2022-10-05] MEDS: SODIUM CHLORIDE 0.9% 1,000 ML IV SCH (02:22)
[2022-10-05 07:46] VITALS: BP 126/80; PULSE 78; TEMP 98.2
--- NOTE | 2022-10-05 09:55 | P.PN ---
Subjective HISTORY OF PRESENT ILLNESS: This is a 52-year-old male with a past medical history significant for former nicotine dependence. 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 We have been asked to see the patient in consultation for syncope. Patient examined at the bedside. patient states that he began to feel unwell on Saturday. He reports on Saturday he began having nausea and vomiting and diarrhea which persisted through the week. He went to his PCP yesterday to be evaluated. He states he was sitting on the exam table when he began to feel lightheaded and was extremely diaphoretic. A few seconds later, he passed out and landed on his left side on the floor. Patient denies any chest pain or pressure. Denies SOB. Denies any dizziness or lightheadedness. * EKG reveals sinus mechanism with no signs of acute ischemia * Chest CTA: negative for PE * Laboratory data: WBC 9.2. Hemoglobin 16.8. Platelet count 179. Sodium 136. Potassium 4.0. B UN 14. Creatinine 1.08. Troponin negative 3. TSH 1.8 x 0. * Current home cardiac medications include none 10/05/2022 Patient examined this morning at the bedside. Patient denies chest pain or pressure. He denies shortness of breath. Denies dizziness or lightheadedness. Patient was evaluated by general surgery yesterday and his diet was advanced. He is tolerating it well. He denies any nausea or vomiting. Denies any diarrhea. Vital signs are stable. Telemetry reveals sinus mechanism with no acute events noted. Echocardiogram completed revealing preserved LV systolic function with no significant valvular issues. PHYSICAL EXAM: VITAL SIGNS: Reviewed. GENERAL: Well-developed in no acute distress. HEENT: Head is normocephalic. Pupils are equal, round. Sclerae anicteric. Mucous membranes of the mouth are moist. Neck supple. No JVD or thyromegaly LUNGS: Respirations even and unlabored. Lungs essentially clear to auscultation bilaterally. HEART: Regular rate and rhythm. S1 and S2 heard. ABDOMEN: Soft. Nondistended. Nontender. EXTREMITIES: Normal range of motion. No clubbing or cyanosis. Peripheral pulse s intact. No lower extremity edema NEUROLOGIC: Awake and alert. Oriented x 3. ASSESSMENT: Nausea, vomiting, and diarrhea x 5 days Decreased oral intake x 5 days Syncope, likely secondary to above Abdominal pain, possible partial SBO PLAN: No further inpatient recommendations Patient is stable for discharge home today from a cardiac standpoint We will sign off. Please reconsult if needed. Nurse practitioner note has been reviewed by physician. Signing provider agrees with the documented findings, assessment, and plan of care. Objective - Vital Signs Vital signs: Vital Signs Temp 98.2 F 10/05/22 06:57 Pulse 78 10/05/22 06:57 Resp 16 10/05/22 06:57 BP 126/80 10/05/22 06:57 Pulse Ox 96 10/05/22 08:36 FiO2 Intake & Output 10/04/22 10/05/22 10/05/22 18:59 06:59 18:59 Other: # Voids 3 3 - Labs CBC & Chem 7: 10/04/22 07:15 10/04/22 07:15 Labs: Abnormal Lab Results - Last 24 Hours (Table) 10/04/22 Range/Units 07:15 BUN/Creatinine Ratio 11.30 L (12.00-20.00) Ratio Calcium 8.6 L (8.7-10.3) mg/dL Total Protein 5.8 L (6.2-8.2) d/dL
--- NOTE | 2022-10-05 11:03 | P.DS ---
Providers Date of admission: 10/03/22 19:17 Expected date of discharge: 10/05/22 Attending physician: Nirmal Rodriguez Consults: 10/03/22 19:17 Consult Physician Routine Consulting Provider: Porfirio Cruz Consult Reason/Comments: sbo Do you want consulting provider notified?: Yes Primary care physician: Nirmal Rodriguez - Discharge Diagnosis(es) (1) Abdominal pain Current Visit: Yes Status: Acute (2) Dehydration Current Visit: Yes Status: Acute (3) SBO (small bowel obstruction) Current Visit: Yes Status: Acute (4) Syncope Current Visit: Yes Status: Acute Patient Condition at Discharge: Good Plan - Discharge Summary Discharge Rx Participant: No New Discharge Prescriptions: No Action Loratadine [Claritin] 10 mg PO DAILY Omeprazole 40 mg PO DAILY Discharge Medication List Loratadine [Claritin] 10 mg PO DAILY 10/03/22 [History] Omeprazole 40 mg PO DAILY 10/03/22 [History] Follow up Appointment(s)/Referral(s): Nirmal Rodriguez MD [Primary Care Provider] - 1-2 days Discharge Disposition: HOME SELF-CARE
--- NOTE | 2022-10-05 12:07 | P.PN ---
Progress Note - Text Progress Note Date: 10/05/22 The patient feels well. He wants to go home. On exam vital signs appear stable. Abdomen soft. Resolving gastritis. Patient be discharged home she'll follow-up Dr. Cruz next week.
== END 2022-10-05 11:52 | disposition home or self-care (01) | DRG 390 ==
LOC: EC 15:36 → 5NMEDONC 19:17 → 4SSUR 19:48
PROVIDERS: ADMIT Family Medicine; ATTEND Family Medicine
DX: K56.609 Unspecified intestinal obstruction, unspecified as to partial versus complete obstruction (principal); R11.2 Nausea with vomiting, unspecified; K29.70 Gastritis, unspecified, without bleeding; K52.9 Noninfective gastroenteritis and colitis, unspecified; E86.0 Dehydration; R55 Syncope and collapse; Z87.891 Personal history of nicotine dependence; Z90.49 Acquired absence of other specified parts of digestive tract
CPT/HCPCS: 36415; 71275; 74019; 74177; 80053; 83735; 83880; 84100; 84443; 84484; 85025; 85379; 85610; 85730; 93005; 93306; 94760; 96361; 96374; 99285